=== PATIENT | male | born 1940 | race Asian ===

== ENCOUNTER 2019-10-12 13:11 | Inpatient (IN) | payer OTHER ==
[~2019-10-12] VITALS: Ht 162.6 cm; Wt 84.4 kg
[2019-10-12 13:16] VITALS: BP 109/66
[2019-10-12] MEDS ORDERED: NITROGLYCERIN 0.4 MG TAB SL STA (13:20)
[2019-10-12] MEDS ORDERED: SODIUM CHLORIDE FLUSH 10 ML SYR IVF STA (13:20)
--- NOTE | 2019-10-12 13:56 | NUR ---
TO ED 06 WITH STEADY GAIT.
--- NOTE | 2019-10-12 14:13 | NUR ---
Dr. Chin is evaluating the patient at bedside.
--- NOTE | 2019-10-12 14:23 | NUR ---
79/M TO ED WITH C/O CHEST PAIN SUDDEN ONSET ABOUT 30 MINS PRIOR TO ARRIVAL. REPORTS CP STARTED WHEN AT REST. DENIES SOB, N/V, OR RADIATION. PT DOES HAS SIGNIFICANT CARDAIC HISTORY. NO SIGNS OF DISTRESS; ABLE TO SPEAK IN CLEAR SENTENCES WITHOUT ANY DIFFICULTY. PLACED ON CONTINOUS CARDIAC MONITORING; MD SPEAKING WITH PATIENT AT BEDSIDE.
[2019-10-12] MEDS ORDERED: NACL 0.9% 500 ML IV ONE (14:25)
[2019-10-12 14:29] LABS: BASOPHILS % (AUTO) 0.8 % (0.0-2.0); EOSINOPHILS # (AUTO) 0.4 K/uL (0-0.4); EOSINOPHILS % (AUTO) 7.5 % (0.0-4.0); HEMATOCRIT 42.6 % (36-52); HEMOGLOBIN 13.8 g/dL (12.0-18.0); LYMPHOCYTES # (AUTO) 1.4 K/uL (2.0-11.5); LYMPHOCYTES % (AUTO) 29.4 % (20.5-51.1); MEAN CORPUSCULAR HEMOGLOBIN 32 pg (27-31); MEAN CORPUSCULAR HGB CONC 32 g/dL (33-37); MONOCYTES # (AUTO) 0.5 K/uL (0.8-1.0); MONOCYTES % (AUTO) 10.7 % (1.7-9.3); NEUTROPHILS # (AUTO) 2.4 K/uL (1.8-7.7); NEUTROPHILS % (AUTO) 51.6 % (42.2-75.2); PLATELET COUNT (AUTO) 138 K/uL (140-450); RED BLOOD CELL COUNT(AUTO) 4.26 MIL/uL (4.20-6.10); RED CELL DISTRIBUTION WIDTH 15.7 % (11.6-13.7); WHITE BLOOD COUNT (AUTO) 4.7 K/uL (4.8-10.8)
[2019-10-12 14:40] LABS: ANION GAP 12.1 (8-16); CHLORIDE 107 mmol/L (98-107); CREATININE 1.1 mg/dL (0.7-1.3); GLUCOSE 95 mg/dL (74-106); POTASSIUM 4.1 mmol/L (3.5-5.1); SODIUM SERUM 143 mmol/L (136-145); UREA NITROGEN, BLOOD 20 mg/dL (7-18)
[2019-10-12 14:45] LABS: ALBUMIN 3.4 g/dL (3.4-5.0); ASPARTATE AMINOTRANSFERASE 10 U/L (15-37); TOTAL BILIRUBIN 0.5 mg/dL (0.0-1.0)
[2019-10-12] MEDS ORDERED: RIVA20TA PO (15:09)
[2019-10-12] MEDS ORDERED: ASPI-1718 PO (15:17)
[2019-10-12] MEDS ORDERED: FERR324T11 PO (15:17)
[2019-10-12] MEDS ORDERED: ISOS30TE68 PO (15:17)
[2019-10-12] MEDS ORDERED: SOTA80TA PO (15:17)
[2019-10-12] MEDS ORDERED: ATOR40TA PO (15:17)
[2019-10-12] MEDS ORDERED: NITR0.4T94 SL (15:17)
[2019-10-12] MEDS ORDERED: TAMS0.4C96 PO (15:17)
[2019-10-12] MEDS ORDERED: OMEG-36 PO (15:17)
[2019-10-12] MEDS ORDERED: PANT40EC PO (15:17)
[2019-10-12] MEDS ORDERED: ZYL300 PO (15:17)
[2019-10-12] MEDS: NACL 0.9% 1,000 ML IV SCH (16:06)
[2019-10-12] MEDS ORDERED: ONDANSETRON 4 MG/2 ML VIAL IM/IVP PRN (16:10)
[2019-10-12] MEDS ORDERED: ACETAMINOPHEN 325 MG TAB PO PRN (16:10)
[2019-10-12] MEDS ORDERED: MORPHINE SULFATE 2 MG/ML SYR IVP PRN (16:10)
[2019-10-12 16:25] VITALS: BP 98/58
[2019-10-12] MEDS ORDERED: NITROGLYCERIN 0.4 MG TAB SL PRN (16:25)
--- NOTE | 2019-10-12 16:25 | NUR ---
RECEIVED PATIENT FROM ED NURSE CONOR VIA SALO. PATIENT IS AAOX4. RESPIRATIONS EVEN AND UNLABORED, ON ROOM AIR. LUNG SOUNDS CLEAR. PATIENT IS ON TELE MONITORING, SINUS PARVEZ. C/O OF CHEST PAIN, PRESSURE PAIN 2/10 PAIN. PATIENT STATES CHEST PAIN IS TOLERABLE. BOWEL SOUNDS ACTIVE X4 QUADS. ABDOMEN SOFT AND NONTENDER. SKIN INTACT. NO REDNESS. IV ON RIGHT AC 22G SALINE LOCK. IV PATENT AND INTACT. PATIENT IS AMBULATORY. BED IN LOW POSITION. CALL LIGHT IS WITHIN REACH. WILL CONTINUE TO MONITOR
--- NOTE | 2019-10-12 16:25 | NUR ---
Patient will be admitted to care of DR BENOIT. Admited to TELE. Will go to room 11-A. Belongings list completed. Report to MEÑO NELSON.
[2019-10-12 16:52] LABS: PROTHROMBIN TIME 11.6 secs (10.8-13.4)
[2019-10-12 17:11] LABS: MAGNESIUM 1.9 mg/dL (1.8-2.4); PHOSPHORUS 3.2 mg/dL (2.5-4.9); THYROID STIMULATING HORMONE 2.31 uIU/mL (0.34-3.74)
--- NOTE | 2019-10-12 17:57 | NUR ---
GIVEN NS AT 60 ML/HR. IV PATENT AND INTACT. WILL CONTINUE TO MONITOR.
--- NOTE | 2019-10-12 18:27 | NUR ---
URINE SPECIMEN AND MRSA NARES SWAB COLLECTED. SENT TO LAB
--- NOTE | 2019-10-12 18:51 | NUR ---
PATIENT IS RESTING AT THIS TIME. PATIENT STATED STILL PRESSURE IN HIS CHEST BUT IT'S TOLERABLE.
--- NOTE | 2019-10-12 19:15 | NUR ---
RECEIVED REPORT FROM [facility] RN DAYSHIFT NURSE AT BEDSIDE FOR CONTINUITY OF CARE, PT IN STABLE CONDITION.
--- NOTE | 2019-10-12 19:15 | NUR ---
RECEIVED REPORT FROM BOB WILDER DAYSHIFT NURSE AT BEDSIDE FOR CONTINUITY OF CARE, PT IN STABLE CONDITION.
--- NOTE | 2019-10-12 19:15 | NUR ---
ENDORSED TO POST HOLE DIGGER NURSE FOR CONTINUITY OF CARE. PATIENT IS STABLE
[2019-10-12 19:43] LABS: APPEARANCE,URINE CLEAR (CLEAR); BILIRUBIN,URINE NEGATIVE (NEGATIVE); BLOOD, URINE NEGATIVE (NEGATIVE); COLOR,URINE YELLOW (YELLOW); LEUKOCYTE ESTERASE ,URINE NEGATIVE (NEGATIVE); NITRITE, URINE NEGATIVE (NEGATIVE); UGLUCOSE NEGATIVE (NEGATIVE)
[2019-10-12 20:00] VITALS: BP 94/55
--- NOTE | 2019-10-12 20:00 | NUR ---
PT SITTING UP IN BED AOX4 WITH NO S/S OF PAIN OR DISTRESS NOTED. PT ON ROOM AIR AND RESPIRATIONS ATRE EVEN AND UNLABORED. PT SAID PAIN IS TOLERABLE AT A 2-3 /10. SKIN INTACT, PT HAS IV SITE RAC 20G RUNNING NORMAL SALINE AT 60MLS/HR. V/S FOLLOWS: T 97.8 P 55 R 18 B/P 94/55 02 95% ON ROOM AIR. BED LOW SIDE RAILS UP AND ALL UNIVERSAL FALLS PRECAUTIONS IN PLACE.
[2019-10-12] MEDS: RIVAROXABAN 10 MG TAB PO SCH (21:09)
[2019-10-12] MEDS: HYDROcodone/APAP 5/325 MG 1 TAB TAB PO PRN (21:11)
--- NOTE | 2019-10-12 21:15 | NUR ---
PT GIVEN ORDERED XARELTO 20MG, EDUCATION REGARDING MEDICATION PROVIDED AT BEDSIDE, INCLUDING SIDE EFFECTS. PT ALSO GIVEN REQUESTED NORCO FOR MODERATE 5/10 CHEST PAIN; WILL MONITOR FOR PAIN RELIEF. BED LOW AND CALL MEIER IN REACH.
--- NOTE | 2019-10-12 23:45 | NUR ---
PT IN BED, PT VOICED THAT NORCO DID HELP WITH PAIN REIELF AND HE HAS NO PAIN RIGHT NOW. V/S FOLLOWS: T 96.1 P 52 R 18 B/P 137/71 02 100% ON ROOM AIR . RT AT BEDSIDE READY TO PUT ON C-PAPA FOR THE PT TO SLEEP WITH DUE TO PT HX OF SLEEP APNEA. BED LOW AND CALL MEIER IN REACH.
[2019-10-13] VITALS: BP 137/71
[2019-10-13 04:00] VITALS: BP 113/69
--- NOTE | 2019-10-13 04:15 | NUR ---
PT IN BED C-PAP IN PLACE , HE DENIES ANY PAIN AT THIS TIME, V/S FOLLOWS: T 97.0 P 60 R 18 B/P 02 99% ON ROOM AIR. UNIVERSAL FALLS PRECAUTIONS IN PLACE.
--- NOTE | 2019-10-13 05:49 | NUR ---
PATIENT TAKEN OFF CPAP PT IS AWAKE FOR THE DAY. NO SOB NOTED
[2019-10-13 06:57] LABS: ANION GAP 8.8 (8-16); CARBON DIOXIDE 30.5 mmol/L (21-32); CHLORIDE 108 mmol/L (98-107); GLUCOSE 100 mg/dL (74-106); POTASSIUM 4.3 mmol/L (3.5-5.1); SODIUM SERUM 143 mmol/L (136-145); UREA NITROGEN, BLOOD 16 mg/dL (7-18)
[2019-10-13 06:58] LABS: BASOPHILS % (AUTO) 1.1 % (0.0-2.0); EOSINOPHILS # (AUTO) 0.3 K/uL (0-0.4); EOSINOPHILS % (AUTO) 6.6 % (0.0-4.0); HEMATOCRIT 42.8 % (36-52); LYMPHOCYTES # (AUTO) 1.2 K/uL (2.0-11.5); MEAN CORPUSCULAR HEMOGLOBIN 33 pg (27-31); MEAN CORPUSCULAR HGB CONC 33 g/dL (33-37); MEAN CORPUSCULAR VOLUME 100.2 fL (80-94); MONOCYTES # (AUTO) 0.4 K/uL (0.8-1.0); MONOCYTES % (AUTO) 9.9 % (1.7-9.3); NEUTROPHILS # (AUTO) 2.2 K/uL (1.8-7.7); NEUTROPHILS % (AUTO) 53.4 % (42.2-75.2); PLATELET COUNT (AUTO) 127 K/uL (140-450); RED BLOOD CELL COUNT(AUTO) 4.27 MIL/uL (4.20-6.10); RED CELL DISTRIBUTION WIDTH 15.4 % (11.6-13.7)
[2019-10-13 07:03] LABS: MAGNESIUM 1.9 mg/dL (1.8-2.4); PHOSPHORUS 2.9 mg/dL (2.5-4.9)
[2019-10-13 07:04] LABS: CHOL/HDL RATIO 2.6 (1-4.5)
--- NOTE | 2019-10-13 07:15 | NUR ---
RECEIVED BEDSIDE REPORT FROM CHEESE PACKER NURSE, PT IS AWAKE AND ALERT, ON HIS LAPTOP, NO S/S OF ACUTE DISTRESS OR SOB. PT IS AMBULATORY AND ABLE TO MAKE NEEDS KNOWN. IV SITE R AC 20 G, INFUSING NS 60 ML/HR. PT IS ON ROOM AIR, SKIN INTACT. CALL LIGHT IS WITHIN REACH. WILL CONTINUE TO MONITOR.
[2019-10-13 08:00] VITALS: BP 110/65
[2019-10-13] MEDS: NACL 0.9% 1,000 ML IV SCH (08:46)
[2019-10-13] MEDS ORDERED: ASPIRIN 81 MG TAB.CHEW PO SCH (09:00)
[2019-10-13] MEDS ORDERED: RIVAROXABAN 10 MG TAB PO SCH (09:00)
[2019-10-13] MEDS ORDERED: FERROUS GLUCONATE 324 MG TAB PO SCH (09:00)
[2019-10-13] MEDS: ISOSORBIDE MONONITRATE 30 MG TABER PO SCH (09:00)
--- NOTE | 2019-10-13 09:01 | NUR ---
PT HAS BEEN SCREENED AND CATEGORIZED LOW NUTRITION RISK. PT WILL BE SEEN WITHIN 5-7 DAYS OF ADMISSION. 10/17/19-10/19/[address]
[2019-10-13] MEDS: ATORVASTATIN 20 MG TAB PO SCH (10:26)
[2019-10-13] MEDS: TAMSULOSIN 0.4 MG CAP PO SCH (10:26)
[2019-10-13] MEDS: ALLOPURINOL 300 MG TAB PO SCH (10:27)
[2019-10-13] MEDS: PANTOPRAZOLE 40 MG TABEC PO SCH (10:27)
[2019-10-13] MEDS: ASPIRIN 81 MG TAB.CHEW PO SCH (10:27)
[2019-10-13] MEDS: HYDROcodone/APAP 5/325 MG 1 TAB TAB PO PRN ×2 (10:28→21:24)
--- NOTE | 2019-10-13 10:37 | NUR ---
AM MEDS ADMINISTERED, PT TOLERATED WELL. ALSO ADMINISTERED THE PRN NORCO FOR 4/10 CHEST ACHE. WILL REASSESS WITHIN AN HOUR
[2019-10-13 12:00] VITALS: BP 112/66
--- NOTE | 2019-10-13 13:19 | NUR ---
PT SITTING UP IN BED COMFORTABLY, ON HIS LAPTOP, NO S/S OF DISTRESS OR C/O PAIN. WILL CONTINUE TO MONITOR.
[2019-10-13 16:00] VITALS: BP 120/68
--- NOTE | 2019-10-13 19:15 | NUR ---
ENDORSED PT TO CHIEF BUSINESS DEVELOPMENT OFFICER NURSE IN STABLE CONDITION
[2019-10-13] MEDS: REGADENOSON 0.4 MG/5 ML SYR IV ONE (19:20)
--- NOTE | 2019-10-13 19:20 | NUR ---
LEXICON SCAN IV NON ADMINISTERED, PT NEEDS TO BE NPO AND NO CAFFEINE FOR 8HRS. LEXICON SCAN TO BE DONE TOMORROW MORNING.
[2019-10-13 20:00] VITALS: BP 124/64
--- NOTE | 2019-10-13 20:00 | NUR ---
PT SITTING UP IN BED, ALERT AND ORIENTED. HE SAYS THE CHEST PAIN IS AT A 2 AND IS TOLERABLE AT THIS TIME. IV SITE ON RIGHT AC IS INTACT AND ASYMPTOMATIC RUNNING N/S AT 60MLS/HR.V/S FOLLOWS : T 97.9 P 60 R 18 B/P 124/64 02 96% ON ROOM AIR. ALL UNIVERSAL PRECAUTIONS IN PLACE AT THIS TIME . ALL REQUESTED NEEDS ATTENDED BY STAFF.
[2019-10-13] MEDS ORDERED: CRUSHER, PILL MC ONE (21:00)
--- NOTE | 2019-10-13 21:00 | NUR ---
PT GIVEN ORDERED MEDS OF XARELTO 20MG WELL BETAPACE 120MG. EDUCATION REGARDING MEDICATION , PURPOSE AND SIDE EFFECTS PROVIDED TO PT AT BEDSIDE. PT VERBALIZED UNDERSTANDING.
[2019-10-13] MEDS: RIVAROXABAN 10 MG TAB PO SCH (21:19)
[2019-10-13] MEDS: SOTALOL 80 MG TAB PO SCH (21:23)
--- NOTE | 2019-10-13 21:30 | NUR ---
PT C/O MODERATE CHEST PAIN 4/10, PT GIVEN 1 TAB NORCO PO/PRN, WILL MONITOR FOR PAIN REIELF. ALL UNIVERSAL FALLS PRECAUTIONS IN PLACE.
--- NOTE | 2019-10-13 21:46 | NUR ---
PLACED PT ON CPAP FOR SLEEP AROUND 9:30 PM. DEVICE PLUGGED IN RED OUTLET AND ALARMS ARE SET AND AUDIBLE. PT IS COMFORTABLE ON CPAP MODE. WILL CONTINUE TO MONITOR PT.
[2019-10-14] VITALS: BP 91/58
--- NOTE | 2019-10-14 | NUR ---
PT IN BED WITH C-PAP ON RESTING WITH EYES CLOSED, NO S/S OF PAIN OR DISTRESS NOTED V/S FOLLOWS: T 97.9 P57 R 20 B/P 91/58 02 97% ON ROOM AIR. ALL UNIVERSAL FALLS PRECAUTIONS IN PLACE.
[2019-10-14] MEDS: NACL 0.9% 1,000 ML IV SCH (01:26)
[2019-10-14 04:00] VITALS: BP 104/62
--- NOTE | 2019-10-14 04:00 | NUR ---
PT IN BED NO S/S OF PAIN OR DISTRESS NOTED , C-PAP IN PLACE AND V/S FOLLOWS: T 98.1 P 54 R 18 B/P 104/62 02 98% ON C-PAP MACHINE. UNIVERSAL FALLS PRECAUTIONS IN PLACE.
[2019-10-14 07:15] LABS: BASOPHILS % (AUTO) 1.1 % (0.0-2.0); EOSINOPHILS # (AUTO) 0.3 K/uL (0-0.4); EOSINOPHILS % (AUTO) 7.8 % (0.0-4.0); HEMATOCRIT 43.2 % (36-52); LYMPHOCYTES # (AUTO) 1.1 K/uL (2.0-11.5); LYMPHOCYTES % (AUTO) 27.5 % (20.5-51.1); MEAN CORPUSCULAR HEMOGLOBIN 33 pg (27-31); MEAN CORPUSCULAR HGB CONC 33 g/dL (33-37); MEAN CORPUSCULAR VOLUME 100.4 fL (80-94); MONOCYTES # (AUTO) 0.5 K/uL (0.8-1.0); MONOCYTES % (AUTO) 11.8 % (1.7-9.3); NEUTROPHILS % (AUTO) 51.8 % (42.2-75.2); PLATELET COUNT (AUTO) 119 K/uL (140-450); RED CELL DISTRIBUTION WIDTH 15.4 % (11.6-13.7); WHITE BLOOD COUNT (AUTO) 3.9 K/uL (4.8-10.8)
--- NOTE | 2019-10-14 07:15 | NUR ---
REPORT RECEIVED FROM BASKET MAKER NURSE AT BEDSIDE FOR CONTINUITY OF CARE. PATIENT AWAKE AND ALERT, PT AMBULATES TO BATHROOM. IV SITE INTACT, INFUSING IVF WELL. RESPIRATIONS EVEN AND UNLABORED ON ROOM AIR. PATIENT DENIES PAIN AT THIS TIME. UPDATED BOARD. UPDATED PATIENT ABOUT PLAN OF CARE. HE VERBALIZED UNDERSTANDING. PATIENT IS AWARE OF LEXISCAN SCHEDULED FOR TODAY, PATIENT AWARE NO CAFFEINE. CALL LIGHT WITHIN REACH, WILL CONTINUE TO MONITOR PATIENT.
[2019-10-14 07:23] LABS: ANION GAP 8.1 (8-16); CARBON DIOXIDE 29.7 mmol/L (21-32); CHLORIDE 109 mmol/L (98-107); GLUCOSE 96 mg/dL (74-106); POTASSIUM 4.8 mmol/L (3.5-5.1); SODIUM SERUM 142 mmol/L (136-145); UREA NITROGEN, BLOOD 12 mg/dL (7-18)
[2019-10-14 07:32] LABS: PHOSPHORUS 3.5 mg/dL (2.5-4.9)
--- NOTE | 2019-10-14 07:40 | NUR ---
OFF CPAP TO MASK AT THIS TIME ON ROOM AIR
[2019-10-14 08:00] VITALS: BP 108/67
[2019-10-14] MEDS: FERROUS GLUCONATE 324 MG TAB PO SCH (08:59)
[2019-10-14] MEDS: ALLOPURINOL 300 MG TAB PO SCH (08:59)
[2019-10-14] MEDS: TAMSULOSIN 0.4 MG CAP PO SCH (08:59)
[2019-10-14] MEDS: PANTOPRAZOLE 40 MG TABEC PO SCH (08:59)
[2019-10-14] MEDS: ATORVASTATIN 20 MG TAB PO SCH (08:59)
[2019-10-14] MEDS: ASPIRIN 81 MG TAB.CHEW PO SCH (08:59)
--- NOTE | 2019-10-14 08:59 | NUR ---
ORDERED MEDICATIONS GIVEN. BP MEDICATIONS HELD, PT BP 108/76, HR 55, D/T SCHEDULED EDILSON SCAN. PATIENT AWARE. NO COMPLAINTS AT THIS TIME. CALL LIGHT WITHIN REACH. WILL CONTINUE TO MONITOR PATIENT.
[2019-10-14] MEDS: ISOSORBIDE MONONITRATE 30 MG TABER PO SCH (09:00)
[2019-10-14] MEDS: SOTALOL 80 MG TAB PO SCH ×2 (09:00→20:46)
[2019-10-14] MEDS ORDERED: REGADENOSON 0.4 MG/5 ML SYR IV SCH (09:05)
[2019-10-14] MEDS: DOCUSATE SODIUM 100 MG GELCAP PO PRN (09:15)
--- NOTE | 2019-10-14 09:15 | NUR ---
PT C/O HEADACHE, PRN TYLENOL GIVEN. PT STATED NO BM SINCE 10/11/19, PRN COLACE GIVEN REQUESTED. PER AMANDA BLACK ASH WORKER, [facility]. PT AWARE OF THIS. CALL LIGHT WITHIN REACH, WILL CONTINUE TO MONITOR PATIENT.
--- NOTE | 2019-10-14 09:20 | NUR ---
KODI, monEchelle TECH CALLED. UPDATED HER ABOUT PATIENT'S STATUS AND LEXISCAN ORDER. PASSED PHONE TO AMANDA RECRUITING SCHEDULER. PER KODI PATEL CURRENTLY AT [place], NOT POSSIBLE AT THE MOMENT TO DO LEXISCAN SCHEDULED. DR. OROZCO WILL BE COMING IN TO SEE PATIENT. WILL UPDATE HIM ABOUT THIS INFORMATION.
--- NOTE | 2019-10-14 09:55 | NUR ---
DR OROZCO IN TO SPEAK TO PATIENT. PATIENTS AT BEDSIDE. WILL WAIT FOR UPDATED ORDERS.
--- NOTE | 2019-10-14 10:37 | NUR ---
DR REDMAN INFORMED OF NEW SCHEDULED TIME OF LEXISCAN TEST.
[2019-10-14 12:00] VITALS: BP 97/65
--- NOTE | 2019-10-14 14:10 | NUR ---
PATIENT RESTING COMFORTABLY WATCHING TV. NO COMPLAINTS AT THIS TIME. WILL CONTINUE TO MONITOR.
[2019-10-14 16:11] VITALS: BP 96/61
--- NOTE | 2019-10-14 19:20 | NUR ---
REPORT GIVEN TO PROGRAM ANALYST NURSE AT BEDSIDE FOR CONTINUITY OF CARE. PATIENT IN STABLE CONDITION.
--- NOTE | 2019-10-14 19:30 | NUR ---
RECEIVED REPORT [facility] [place] RN DAYSHIFT NURSE AT BEDSIDE FOR CONTINUITY OF CARE, PT IN STABLE CONDITION.
[2019-10-14 20:00] VITALS: BP 111/63
--- NOTE | 2019-10-14 20:00 | NUR ---
PT IN BED AOX4, IV SITE ON R FA INTACT AND ASYMPTOMATIC. HE HAS NORMAL SALINE RUNNING AT 60MLS/HR. HE SAYS PAIN LEVEL IN CHEST IS ABOUT A 2/10 AT THIS TIME. V/S FOLLOWS: T 98.0 P 60 R 18 B/P 111/63 02 97% ON ROOM AIR. ALL UNIVERSAL FALLS PRECAUTIONS IN PLACE .
--- NOTE | 2019-10-14 20:30 | NUR ---
SPOKE WITH MD NEVES REGARDING PT DECREASED B/P, OK TO HOLD PER . WILL CONTINUE TO MONITOR V/S FOLLOWS.
[2019-10-14] MEDS: RIVAROXABAN 10 MG TAB PO SCH (20:43)
--- NOTE | 2019-10-14 21:00 | NUR ---
PT GIVEN ORDERED [id number] FOR HX OF A FIB AND IA. BETAPACE 120MG WAS HELD DUE TO DECREASED B/P. WILL CONTINUE TO MONITOR VITALS SIGNS AND MONITOR PAIN.
[2019-10-14] MEDS: HYDROcodone/APAP 5/325 MG 1 TAB TAB PO PRN (22:06)
--- NOTE | 2019-10-14 22:10 | NUR ---
PT C/O 5/10 MODERATE PAIN IN CHEST, GIVEN 1 TAB NORCO PO/PRN. WILL MONITOR FOR EFFECT. ALL UNIVERSAL FALLS PRECAUTIONS IN PLACE.
[2019-10-15] VITALS: BP 101/59
--- NOTE | 2019-10-15 | NUR ---
PT IN BED WITH C-PAPA MASK ON. NO S/S OF PAIN OR DISTRESS NOTED. IV SITE INTACT AND RUNNING NS AT 60MLS/HR. V/S FOLLOWS: T 97.7 P 60 R 20 B/P 101/59 02 96% ON ROOM AIR. ALL UNIVERSAL FALLS PRECAUTIONS IN PLACE.
[2019-10-15] MEDS: NACL 0.9% 1,000 ML IV SCH ×2 (02:01→10:26)
--- NOTE | 2019-10-15 02:04 | NUR ---
PT RATE OF NS CHANGED TO 10MLS/HR. ADJUSTMENT MADE ON PUMP. PT IN BED SLEEPING WITH C-PAP ON NO S/S OF PAIN OR DISTRESS NOTED.
[2019-10-15 04:00] VITALS: BP 105/66
--- NOTE | 2019-10-15 04:00 | NUR ---
PT IN BED NO S/S OF PAIN OR DISTRESS NOTED C-PAP IN PLACE V/S FOLLOWS: T 97.0 P 60 R 18 B/P 105/66 02 98% ON ROOM AIR. ALL UNIVERSAL PRECAUTIONS IN PLACE AND CALL MEIER IN REACH.
--- NOTE | 2019-10-15 06:00 | NUR ---
PT SITTING UP IN BED, C PAP OFF IV SITE INTACT AND RUNNING NS ORDERED. PT DENIES PAIN. WILL ENDORSE POC TO AM NURSE FOR CONTINUITY OF CARE, PT IN STABLE CONDITION.
--- NOTE | 2019-10-15 07:10 | NUR ---
RECEIVED REPORT FROM STERILIZATION TECH NURSE AT BEDSIDE FOR CONTINUITY OF CARE. PATIENT AWAKE AND ALERT, REQUESTED FOR HIS CPAP TO BE REMOVED. RT PETER COMING. RESPIRATIONS EVEN AND UNLABORED ON ROOM AIR. PATIENT DENIES PAIN. NO S/S OF DISTRESS NOTED. UPDATED BOARD. IV SITE INTACT, INFUSING IVF WELL. UPDATED PATIENT WITH PLAN OF CARE. HE VERBALIZED UNDERSTANDING. PATIENT AWARE OF STRESS TEST TODAY AT 1430. CALL LIGHT WITHIN REACH, WILL CONTINUE TO MONITOR PATIENT.
--- NOTE | 2019-10-15 07:22 | NUR ---
OFF CPAP TO MASK AT THIS TIME LOC AWAKE AND ALERT VERBALLY RESPONSIVE ON ROOM AIR SEE RT INTERVENTIONS
[2019-10-15 07:41] VITALS: BP 104/65
--- NOTE | 2019-10-15 08:26 | NUR ---
DC [age] YRS OLD WAS ADMITTED FROM HOME WITH A DX OF CHEST PAIN. PT HAS A HX OF A-FIB WV WITH 9 STENT PLACEMENT, GERD HTN AND SLEEP APNEA. ADMINISTERED NITRO SL ,ASA 81 MG. TROP (-) X 3, ECHO, CARDIOLOGY CONSULT ORDERED. DC PLAN TO GO HOME WHEN STABLE. CM TO FOLLOW.
[2019-10-15] MEDS: FERROUS GLUCONATE 324 MG TAB PO SCH (08:39)
[2019-10-15] MEDS: PANTOPRAZOLE 40 MG TABEC PO SCH (08:39)
[2019-10-15] MEDS: ALLOPURINOL 300 MG TAB PO SCH (08:39)
[2019-10-15] MEDS: TAMSULOSIN 0.4 MG CAP PO SCH (08:39)
[2019-10-15] MEDS: ASPIRIN 81 MG TAB.CHEW PO SCH (08:39)
[2019-10-15] MEDS: DOCUSATE SODIUM 100 MG GELCAP PO PRN (08:39)
[2019-10-15] MEDS: ATORVASTATIN 20 MG TAB PO SCH (08:39)
--- NOTE | 2019-10-15 08:39 | NUR ---
SCHEDULED MEDICATIONS GIVEN. HELD OFF ON BETAPACE AND ISOBID BECAUSE OF LEXISCAN AT 1430. PATIENT AWARE. PATIENT TOLERATED MEDS WELL. NO COMPLAINTS AT THIS TIME. CALL LIGHT WITHIN REACH. WILL CONTINUE TO MONITOR PATIENT.
[2019-10-15 08:42] LABS: ANION GAP 9.6 (8-16); CARBON DIOXIDE 27.8 mmol/L (21-32); CHLORIDE 108 mmol/L (98-107); CREATININE 0.9 mg/dL (0.7-1.3); GLUCOSE 85 mg/dL (74-106); POTASSIUM 4.4 mmol/L (3.5-5.1); SODIUM SERUM 141 mmol/L (136-145); UREA NITROGEN, BLOOD 17 mg/dL (7-18)
[2019-10-15 08:45] LABS: MAGNESIUM 1.9 mg/dL (1.8-2.4); PHOSPHORUS 3.1 mg/dL (2.5-4.9)
[2019-10-15] MEDS: SOTALOL 80 MG TAB PO SCH ×2 (08:47→21:00)
[2019-10-15] MEDS: ISOSORBIDE MONONITRATE 30 MG TABER PO SCH (08:47)
[2019-10-15 09:43] LABS: BASOPHILS % (AUTO) 0.9 % (0.0-2.0); EOSINOPHILS # (AUTO) 0.3 K/uL (0-0.4); EOSINOPHILS % (AUTO) 6.3 % (0.0-4.0); HEMATOCRIT 42.2 % (36-52); LYMPHOCYTES # (AUTO) 1.4 K/uL (2.0-11.5); LYMPHOCYTES % (AUTO) 30.3 % (20.5-51.1); MEAN CORPUSCULAR HEMOGLOBIN 33 pg (27-31); MEAN CORPUSCULAR HGB CONC 33 g/dL (33-37); MEAN CORPUSCULAR VOLUME 100.8 fL (80-94); MONOCYTES # (AUTO) 0.5 K/uL (0.8-1.0); MONOCYTES % (AUTO) 11.2 % (1.7-9.3); NEUTROPHILS # (AUTO) 2.4 K/uL (1.8-7.7); NEUTROPHILS % (AUTO) 51.3 % (42.2-75.2); PLATELET COUNT (AUTO) 142 K/uL (140-450); RED BLOOD CELL COUNT(AUTO) 4.19 MIL/uL (4.20-6.10); RED CELL DISTRIBUTION WIDTH 15.5 % (11.6-13.7); WHITE BLOOD COUNT (AUTO) 4.7 K/uL (4.8-10.8)
[2019-10-15 11:36] VITALS: BP 96/55
--- NOTE | 2019-10-15 13:00 | NUR ---
AT BEDSIDE. SHE UNDERSTANDS PLAN OF CARE. PATIENT RESTING COMFORTABLY IN BED WAITING TO BE TAKEN TO LEXISCAN. WILL CONTINUE TO MONITOR PATIENT.
--- NOTE | 2019-10-15 14:00 | NUR ---
PATIENT WHEELED OFF FLOOR TO GO TO STRESS TEST. WAITING IN ROOM. WILL WAIT FOR RESULTS.
[2019-10-15] MEDS ORDERED: REGADENOSON 0.4 MG/5 ML SYR IV SCH (15:00)
[2019-10-15 15:40] VITALS: BP 109/73
--- NOTE | 2019-10-15 16:30 | NUR ---
PATIENT CAME BACK FROM EDILSON SCAN. WILL WAIT FOR RESULTS. AT BEDSIDE.
--- NOTE | 2019-10-15 19:16 | NUR ---
REPORT GIVEN TO INSTRUCTOR TRAINER CANINE SERVICE NURSE AT BEDSIDE FOR CONTINUITY OF CARE. PATIENT IN STABLE CONDITION.
--- NOTE | 2019-10-15 19:20 | NUR ---
RECEIVED FROM AM RN IN BED AWAKE AND ALERT. SITTING UP IN BED AND ON HIS LAPTOP. GOOD AFFECT. NO COMPLAINTS OF ANY PAIN. NO SOB. TELEMETRY MONITORING. CALL LIGHT WITH IN REACH AT BEDSIDE. ENCOURAGED TO CALL FOR ANY HELP HE MAY NEED OR IF IN PAIN.
[2019-10-15 19:34] VITALS: BP 101/59
[2019-10-15] MEDS: RIVAROXABAN 10 MG TAB PO SCH (21:24)
--- NOTE | 2019-10-15 21:27 | NUR ---
SOTALOL P.O. REFUSED BY PT. AND XARELTO 20 MG. P.O. TAKEN AND ADMINISTERED.
--- NOTE | 2019-10-16 00:05 | NUR ---
SLEEPING AT THIS TIME WITH BIPAP IN PLACE. NO RESTLESSNESS NOTED. WOKE UP EASILY WHEN VITALS TAKEN. WENT BACK SLEEP AFTER. NO COMPLAINTS DONE.
[2019-10-16 00:12] VITALS: BP 100/60
--- NOTE | 2019-10-16 02:00 | NUR ---
SLEEPING. NO RESTLESSNESS. CALL LIGHT WITH IN REACH AND ON BIPAP. TELEMETRY MONITORING.
[2019-10-16 04:00] VITALS: BP 104/61
--- NOTE | 2019-10-16 05:53 | NUR ---
PT. STILL ON BIPAP. SLEEPING WELL. VITALS TAKEN AT 0400 AND WOKE UP EASILY WHEN TOUCHED. NO COMPLAINTS DONE THIS SHIFT. TELEMETRY MONITORING. WILL ENDORSE TO AM RN FOR CONTINUITY OF CARE.
[2019-10-16] MEDS: NACL 0.9% 1,000 ML IV SCH (06:11)
--- NOTE | 2019-10-16 07:23 | NUR ---
RECEIVED BEDSIDE REPORT FROM PM RN PT AWAKE IN BED PT APPEARS STABLE AND IN NO APPARENT DISTRESS. ALL SAFETY MEASURES ARE IN PLACE PT IS ON TELE MONITORING. PT HAS IVF INFUSING ALL SAFETY MEASURES ARE IN PLACE
[2019-10-16 08:00] VITALS: BP 110/70
[2019-10-16] MEDS: FERROUS GLUCONATE 324 MG TAB PO SCH (08:25)
[2019-10-16] MEDS: ASPIRIN 81 MG TAB.CHEW PO SCH (08:25)
[2019-10-16] MEDS: TAMSULOSIN 0.4 MG CAP PO SCH (08:25)
[2019-10-16] MEDS: SOTALOL 80 MG TAB PO SCH (08:26)
[2019-10-16] MEDS: PANTOPRAZOLE 40 MG TABEC PO SCH (08:26)
[2019-10-16] MEDS: ATORVASTATIN 20 MG TAB PO SCH (08:26)
[2019-10-16] MEDS: ALLOPURINOL 300 MG TAB PO SCH (08:27)
[2019-10-16] MEDS: ISOSORBIDE MONONITRATE 30 MG TABER PO SCH (08:27)
--- NOTE | 2019-10-16 09:13 | NUR ---
FREQUENT ROUNDING ON PT PT APPEARS STABLE AND IN NO APPARENT DISTRESS. PT IS ON TELE MONITORING WILL CONTINUE TO MONITOR.
--- NOTE | 2019-10-16 11:50 | NUR ---
FREQUENT ROUNDING ON PT PT APPEARS STABLE AND IN NO APPARENT DISTRESS, ALL SAFETY MEASURES ARE IN PLACE PT IS ON TELE MONITORING. WILL CONTINUE TO MONITOR
--- NOTE | 2019-10-16 12:19 | NUR ---
REVIEWED DISCHARGE INSTRUCTIONS WITH PATIENT INFORMED PT TO FOLLOW UP WITH HIS PRIMARY CARE PROVIDED WITHIN 2 WEEKS OF DISCHARGE TODAY. ANSWERED ALL QUESTIONS NO CHANGES TO PT MEDICATIONS. REMOVED ID BAND REMOVED IV IV TIP INTACT ALL SAFETY MEASURES ARE IN PLACE. PT AT BEDSIDE ANSWERED ALL QUESTIONS. PT AMBULATED OFF THE UNIT WITH ALL HIS PERSONAL BELONGINGS. PT AMBULATED WITH A STEADY GAIT.
== END 2019-10-16 12:25 | disposition home or self-care (01) | DRG 392 ==
LOC: MED 13:11 → MTU 16:06
PROVIDERS: ADMIT General Practice; ATTEND General Practice
DX: K21.9 Gastro-esophageal reflux disease without esophagitis (principal); E66.9 Obesity, unspecified; E78.5 Hyperlipidemia, unspecified; I10 Essential (primary) hypertension; M10.9 Gout, unspecified; N40.0 Benign prostatic hyperplasia without lower urinary tract symptoms; G47.33 Obstructive sleep apnea (adult) (pediatric); I25.10 Atherosclerotic heart disease of native coronary artery without angina pectoris; I48.0 Paroxysmal atrial fibrillation; T50.905A Adverse effect of unspecified drugs, medicaments and biological substances, initial encounter; E87.8 Other disorders of electrolyte and fluid balance, not elsewhere classified; E83.51 Hypocalcemia; Z85.46 Personal history of malignant neoplasm of prostate; I25.2 Old myocardial infarction; Z68.31 Body mass index [BMI] 31.0-31.9, adult; Y92.89 Other specified places as the place of occurrence of the external cause
CPT/HCPCS: 36415; 71045; 80048; 80053; 81003; 83036; 83735; 83880; 84100; 84436; 84443; 84484; 85025; 85610; 85730; 87081; 93005; 93017; 94660; 96360; 99285; A9500; A9502; J2785; J7030